=== PATIENT | male | born 1990 | race African-American/Black ===

== ENCOUNTER 2020-10-14 14:36 | Emergency (ER) | payer OTHER ==
[~2020-10-14] VITALS: Ht 165.1 cm; Wt 72.6 kg
[~2020-10-14 14:36] MED LIST: DOXYCYCLINE 10100 MG PO
[2020-10-14] MEDS ORDERED: NOHOMEMEDICATIONS (14:41)
[2020-10-14 14:58] LABS: URINE BILIRUBIN NEGATIVE (Negative); URINE BLOOD TRACE (Negative); URINE CLARITY CLEAR; URINE COLOR YELLOW; URINE GLUCOSE-RANDOM* NEGATIVE (Negative); URINE KETONES NEGATIVE (Negative); URINE NITRITE-REFLEX NEGATIVE (Negative); URINE PROTEIN (DIPSTICK) NEGATIVE (Negative); URINE SPECIFIC GRAVITY >= 1.030 (1.005-1.035); URINE UROBILINOGEN 0.2 E.U./dl (0.2-1.0)
[2020-10-14 15:15] LABS: URINE LEUKOCYTES-REFLEX 1+ (Negative)
[2020-10-14 15:27] LABS: CASTS None Seen /LPF (None Seen); CRYSTALS None Seen /LPF (None Seen); SQUAMOUS None Seen /LPF (0-3); URINE RBC None Seen /HPF (0-2)
[2020-10-14 15:28] LABS: BACTERIA-REFLEX 1-9 Few /HPF (None Seen)
[2020-10-14 16:26] VITALS: BP 112/73
== END 2020-10-14 16:26 | disposition home or self-care (01) ==
LOC: ER 14:36
PROVIDERS: Physician Assistant
DX: R36.9 Urethral discharge, unspecified (principal); Z20.2 Contact with and (suspected) exposure to infections with a predominantly sexual mode of transmission